=== PATIENT | male | born 1950 | race Two or more races ===

== ENCOUNTER 2022-07-19 14:18 | Outpatient (CLI) | payer OTHER | END 2022-07-19 14:28 | disposition home or self-care (01) | LOC: RAD 14:18 | PROVIDERS: ATTEND Family Medicine | DX: R05.9 Cough, unspecified (principal) ==

== ENCOUNTER 2023-01-30 11:11 | Outpatient (CLI) | payer OTHER | END 2023-01-30 11:21 | disposition home or self-care (01) | LOC: MRI 11:11 | PROVIDERS: ATTEND Otolaryngology Otology & Neurotology | DX: M75.102 Unspecified rotator cuff tear or rupture of left shoulder, not specified as traumatic (principal) | CPT/HCPCS: 73218 ==

== ENCOUNTER 2023-02-27 10:47 | Outpatient (CLI) | payer OTHER | END 2023-02-27 10:55 | disposition home or self-care (01) | LOC: MRI 10:47 | DX: M75.41 Impingement syndrome of right shoulder (principal) | CPT/HCPCS: 73221 ==

== ENCOUNTER → 2023-09-28 | Emergency (ER) | payer OTHER ==
[~2023-09-28] VITALS: Ht 172.7 cm; Wt 77.1 kg
[~2023-09-28] MED LIST: 0.9 % SODIUM CHLORIDE 1,000 ML IV ONE; ATACAND4 MG PO; BENZONATATE200 M1 PO; DILTIAZEM HCL 125 MG in 0.9 % SODIUM CHLORIDE 125 ML IV SCH; ENOXAPARIN SODIUM 60 MG/0.6 ML SYRINGE SUBCUTANEO STA; GABAPENTIN300 MG; LIPITOR40 M1 PO; NAPR500T14 PO; NASAL MIST126 ML NASAL; PROTONIX40 M1 PO; TOPROL XL50 M1 PO; UROXATRAL10 MG PO
[2023-09-28 03:48] LABS: HEMATOCRIT 40.2 % (39.0-48.0); HEMOGLOBIN 13.6 g/dL (13-16.00); MEAN CELL VOLUME 91.2 fL (80.0-100.00); MEAN CORPUSCULAR HEMOGLOBIN 30.8 pg (27.00-32.0); MEAN CORPUSCULAR HGB CONC 33.8 g/dl (32.0-36.0); PLATELET COUNT 240 K/uL (150-450); RED BLOOD COUNT 4.41 M/uL (4.00-6.00); RED CELL DISTRIBUTION WIDTH 14.6 % (11.5-14.5)
[2023-09-28 04:02] LABS: INR 1.07; PARTIAL THROMBOPLASTIN TIME 30.9 SECONDS (22.0-34.0); PROTHROMBIN TIME 11.2 SECONDS (9.0-11.5)
[2023-09-28 04:41] LABS: ALBUMIN 3.7 gm/dL (3.4-5.0); BILIRUBIN TOTAL 0.76 mg/dL (0.3-1.2); CALCIUM 9.1 mg/dL (8.5-10.1); CREATININE SERUM 1.05 mg/dL (0.70-1.30); GFR 69.43; GLOBULINA 3.9 G/DL (2.4-3.5); POTASSIUM 3.85 mEq/L (3.5-5.1); TOTAL PROTEIN 7.6 gm/dL (6.4-8.2)
[2023-09-28 05:10] LABS: URINE APPEARANCE Clear; URINE BILIRRUBIN Negative (NEGATIVE); URINE BLOOD Negative; URINE COLOR Yellow; URINE GLUCOSE Negative (NEGATIVE); URINE LEUKOCYTE Negative; URINE NITRATE Negative; URINE PROTEIN Negative (NEGATIVE); URINE UROBILINOGEN 0.2 E.U./dl
[2023-09-28 05:14] LABS: URINE BACTERIA 0 uL (0.0-1933); URINE WBC 0.1 uL (0.0-23.2)
== END | disposition home or self-care (01) ==
LOC: ER 02:19
PROVIDERS: General Practice
DX: I48.91 Unspecified atrial fibrillation (principal); R47.81 Slurred speech; I10 Essential (primary) hypertension; Z20.822 Contact with and (suspected) exposure to COVID-19
CPT/HCPCS: 36415; 70450; 71045; 93005; 93041; 96365; 99284; J3490

== ENCOUNTER 2024-11-26 13:56 | Outpatient (CLI) | payer OTHER ==
[~2024-11-26 13:56] MED LIST changes: -0.9 % SODIUM CHLORIDE 1,000 ML IV ONE; -DILTIAZEM HCL 125 MG in 0.9 % SODIUM CHLORIDE 125 ML IV SCH; -ENOXAPARIN SODIUM 60 MG/0.6 ML SYRINGE SUBCUTANEO STA
== END 2024-11-26 14:07 | disposition home or self-care (01) ==
LOC: MRI 13:56
PROVIDERS: ATTEND Family Medicine
DX: M25.552 Pain in left hip (principal)
CPT/HCPCS: 73721

== ENCOUNTER 2024-12-26 08:27 | Outpatient (CLI) | payer OTHER | END 2024-12-26 08:29 | disposition home or self-care (01) | LOC: RAD 08:27 | PROVIDERS: ATTEND Physical Medicine & Rehabilitation Pain Medicine | DX: Z96.642 Presence of left artificial hip joint (principal); T84.031A Mechanical loosening of internal left hip prosthetic joint, initial encounter ==